=== PATIENT | male | born 1990 | race African-American/Black ===

== ENCOUNTER 2016-12-17 19:33 | Emergency (ER) | payer MEDICAID | END 2016-12-17 22:14 | disposition home or self-care (01) | LOC: D.ER 19:33 | DX: M54.5 Low back pain (principal); S39.012A Strain of muscle, fascia and tendon of lower back, initial encounter; X50.0XXA Overexertion from strenuous movement or load, initial encounter; X50.9XXA Other and unspecified overexertion or strenuous movements or postures, initial encounter; Y93.89 Activity, other specified; Y92.89 Other specified places as the place of occurrence of the external cause; S20.211A Contusion of right front wall of thorax, initial encounter; G40.909 Epilepsy, unspecified, not intractable, without status epilepticus; G47.00 Insomnia, unspecified; F32.9 Major depressive disorder, single episode, unspecified ==

== ENCOUNTER 2017-12-02 23:06 | Emergency (ER) | payer MEDICAID | END 2017-12-03 00:45 | disposition home or self-care (01) | LOC: D.ER 23:06 | DX: R10.9 Unspecified abdominal pain (principal); F17.200 Nicotine dependence, unspecified, uncomplicated ==

== ENCOUNTER 2019-10-13 12:51 | Emergency (ER) | payer SELFPAY ==
[~2019-10-13] VITALS: Ht 188 cm; Wt 134.1 kg
[2019-10-13 13:18] VITALS: Ht 188 cm; Wt 134.1 kg
[2019-10-13 13:54] LABS: BASOPHILS 0.2 % (0-2); EOSINOPHILS 4.7 % (0-7); HEMATOCRIT 40.8 % (42.0-54.0); HEMOGLOBIN 13.8 g/dL (13.5-17.5); IMMATURE GRANULOCYTES 0.2 % (0-5); LYMPHOCYTES 19.6 % (15-50); MCHC 33.8 g/dL (31.0-37.0); MCV 82.9 fL (80.0-100.0); MEAN PLATELET VOLUME 10.1 fL (7.4-10.4); MONOCYTES 9.6 % (2-11); NEUTROPHILS 65.7 % (40-80); RBC 4.92 10x6/uL (4.20-6.10); RDW 12.6 % (11.5-14.5); WBC 12.4 10x3/uL (4.8-10.8)
[2019-10-13 14:00] LABS: PLATELET COUNT 258 10x3/uL (130-400)
[2019-10-13 14:05] LABS: CALC OSMOLALITY 273 mosm/kg (275-300); CALCIUM 9.6 mg/dL (8.5-10.1); CARBON DIOXIDE 26.2 mmol/L (21.0-32.0); CHLORIDE - SERUM 104 mmol/L (98-107); CREATININE - SERUM 0.9 mg/dL (0.6-1.3); GLUCOSE 87 mg/dL (74-106); POTASSIUM - SERUM 4.7 mmol/L (3.5-5.1); SODIUM 138 mmol/L (136-145); UREA NITROGEN 10 mg/dL (7-18); eGFR NON AFRICAN AMERICAN > 90 mL/min (90-120)
[2019-10-13 14:10] LABS: ALKALINE PHOSPHATASE 76 U/L (46-116); ALT (SGPT) 59 U/L (10-68); BILIRUBIN - TOTAL 0.54 mg/dL (0.2-1.3); PROTEIN - SERUM 7.8 g/dL (6.4-8.2)
[2019-10-13] MEDS ORDERED: TESSALON PERLE100 MG PO (15:54)
[2019-10-13] MEDS ORDERED: MEDROL DOSE PACK4 MG PO (15:54)
[2019-10-13] MEDS ORDERED: ALBUTEROL SULF8.5 GM INH (15:54)
[2019-10-13] MEDS ORDERED: ZPAK PO (15:54)
[2019-10-13 16:34] VITALS: BP 141/81
== END 2019-10-13 16:34 | disposition home or self-care (01) ==
LOC: D.ER 12:51
PROVIDERS: Family Medicine
DX: J20.9 Acute bronchitis, unspecified (principal)